=== PATIENT | female | born 2000 | race Caucasian/White ===

== ENCOUNTER 2022-01-15 23:43 | Emergency (ER) | payer BC, SELFPAY ==
[2022-01-15] MEDS ORDERED: Zofran 4 MG/2 ML VIAL IV ONE (23:54)
[2022-01-15] MEDS ORDERED: SUBLIMAZE 100 MCG/2 ML IV ONE (23:54)
[2022-01-16 00:02] VITALS: O2SAT 96
[2022-01-16] MEDS ORDERED: SUBLIMAZE 100 MCG/2 ML ONE ×2 (00:03→01:35)
[2022-01-16] MEDS ORDERED: Zofran 4 MG/2 ML VIAL ONE (00:03)
[2022-01-16] MEDS ORDERED: Adacel Vial IM ONE ×2 (00:28→00:36)
--- NOTE | 2022-01-16 00:36 | ERPHSYRPT ---
- History of Present Illness Source: patient Exam Limitations: no limitations Patient Subjective Stated Complaint: pt states "I dropped a gun safe on my right foot. I was helping someone move and it probably weighed 2500 lbs." Triage Nursing Assessment: pt presents to ED in wheelchair, pt alert and oriented x3, pt c/o R foot injury after dropping a gun safe on her foot about 40 minutes prior arrival, pt actively bleeding from R big toenail Physician History: 21 yo wf w R great toe crush injury when large safe landed on it. Pt was wearing tennis shoes when it happened. She states that safe's weight was >2000lbs. Pt denies other/previous injury and is not . Pain is a 10. Will be given Tdap in ER. Method of Injury: other (Crush injury) Occurred: just prior to arrival Quality: constant Severity of Pain-Max: severe Severity of Pain-Current: severe Lower Extremities Pain: 1st toe: right Modifying Factors: Improves With: movement Associated Symptoms: unable to bear weight Allergies/Adverse Reactions: amoxicillin trihydrate [From Augmentin] Allergy (Mild, Verified 06/18/13 23:49) Difficulty Breathing cefdinir [From Omnicef] Allergy (Mild, Verified 06/18/13 23:49) Difficulty Breathing Penicillins Allergy (Mild, Verified 06/18/13 23:48) Difficulty Breathing potassium clavulanate [From Augmentin] Allergy (Mild, Verified 06/18/13 23:49) Difficulty Breathing diphenhydramine HCl [From Benadryl] Allergy (Verified 06/18/13 23:50) guaifenesin [From Robitussin] Allergy (Verified 06/18/13 23:50) sulfamethoxazole [From Septra] Allergy (Verified 06/18/13 23:49) trimethoprim [From Septra] Allergy (Verified 06/18/13 23:49) Home Medications: Cetirizine HCl [Zyrtec] 1 tab PO DAILY 06/18/13 [History] Omeprazole 20 MG [Prilosec 20 mg] 06/18/13 [History] Hx Tetanus, Diphtheria Vaccination/Date Given: (unknown) Hx Influenza Vaccination/Date Given: No Hx Pneumococcal Vaccination/Date Given: No Immunizations Up to Date: Yes Travel Risk - International Travel Have you traveled outside of the country in past 3 weeks: No - Coronavirus Screening Are you exhibiting any of the following symptoms?: No Close contact with a COVID-19 positive Pt in past 14-21 Days: No - Vaccine Status Have you recieved a Covid-19 vaccination: Yes [employer]: [email or web address] - Vaccination Dates Date of 2cond Vaccination (if applicable): unknown - Review of Systems Constitutional: No Symptoms Eyes: No Symptoms Ears, Nose, & Throat: No Symptoms Respiratory: No Symptoms Cardiac: No Symptoms Abdominal/Gastrointestinal: No Symptoms Genitourinary Symptoms: No Symptoms Skin: No Symptoms Neurological: No Symptoms Psychological: No Symptoms Endocrine: No Symptoms Hematologic/Lymphatic: No Symptoms Immunological/Allergic: No Symptoms - Past Medical History Pertinent Past Medical History: Yes Neurological History: No Pertinent History ENT History: No Pertinent History Cardiac History: No Pertinent History Respiratory History: Asthma Endocrine Medical History: No Pertinent History Musculoskeletal History: No Pertinent History GI Medical History: No Pertinent History History: No Pertinent History Psycho-Social History: No Pertinent History Female Reproductive Disorders: No Pertinent History - Past Surgical History Past Surgical History: Yes Neuro Surgical History: No Pertinent History Cardiac: No Pertinent History Respiratory: No Pertinent History Gastrointestinal: No Pertinent History Genitourinary: No Pertinent History Musculoskeletal: No Pertinent History Female Surgical History: No Pertinent History Other Surgical History: EAR TUBES - Social History Smoking Status: Never smoker Exposure to second hand smoke: No Drug Use: none Patient Lives Alone: No Significant Family History: no pertinent family hx - Female History Hx Last Menstrual Period: unknown-on control Hx Now: No - Nursing Vital Signs Nursing Vital Signs: Initial Vital Signs Temperature 99.3 F 01/15/22 23:44 Pulse Rate 90 01/15/22 23:44 Respiratory Rate 20 01/15/22 23:44 Blood Pressure 148/97 01/15/22 23:44 O2 Sat by Pulse Oximetry 96 01/15/22 23:44 Pain Scale Pain Intensity 10 Hypertensive - Physical Exam General Appearance: no apparent distress Eyes, Ears, Nose, Throat Exam: normal ENT inspection, TMs normal, pharynx normal, moist mucous membranes Neck Exam: normal inspection, non-tender, supple, full range of motion, No Brudzinski, No Kernig's, No meningismus Cardiovascular/Respiratory Exam: normal breath sounds, regular rate/rhythm, heart sounds normal Gastrointestinal/Abdominal Exam: non-tender, soft, no organomegaly Back Exam: normal inspection, normal range of motion, No CVA tenderness Hips Exam: bilateral: non-tender, normal inspection, normal range of motion, no evidence of injury Legs Exam: bilateral leg: non-tender, normal inspection, normal range of motion, no evidence of injury Knees Exam: bilateral knee: non-tender, normal inspection, normal range of motion, no evidence of injury Ankle Exam: bilateral ankle: non-tender, normal inspection, normal range of motion, no evidence of injury Foot Exam: right foot: other (R great toe w large flap medially/nail avulsed at base but still connected to tissue/Good distal capillary return and sensation) Neuro/Tendon Exam: normal sensation, normal motor functions, normal tendon functions, responds to pain, no evidence tendon injury Mental Status Exam: alert, oriented x 3, cooperative Skin Exam: normal color, warm, dry SpO2 Interpretation: normal SpO2: 96 O2 Delivery: Room Air - Course Nursing assessment & vital signs reviewed: Yes - Radiology Exams Foot X-ray Interpretation: Interpreted by me (R great toe distal tuft fx) Ordered Tests: Active Orders 24 hr Category Date Time Status IV Insertion STAT Care 01/15/22 23:53 Active Medication Summary Discontinued Medications Generic Name Dose Route Start Last Admin Trade Name Prabhuq PRN Reason Stop Dose Admin Ciprofloxacin 500 mg 01/16/22 01:29 01/16/22 01:36 Ciprofloxacin 500 Mg Tablet PO 01/16/22 01:30 500 mg STAT ONE Administration Ciprofloxacin Confirm 01/16/22 01:35 Ciprofloxacin 500 Mg Tablet Administered 01/16/22 01:36 Dose 500 mg .ROUTE .STK-MED ONE Diphtheria/Tetanus/Acell Pertussis 0.5 ml 01/16/22 00:28 01/16/22 00:38 Tdap --Diph,Pertuss(Acell),Tet Vac/Pf 0.5 Ml Vial IM 01/16/22 00:29 0.5 ml .ONCE ONE Administration Diphtheria/Tetanus/Acell Pertussis Confirm 01/16/22 00:36 Tdap --Diph,Pertuss(Acell),Tet Vac/Pf 0.5 Ml Vial Administered 01/16/22 00:37 Dose 0.5 ml IM .STK-MED ONE Fentanyl Citrate 100 mcg 01/15/22 23:54 01/16/22 00:11 Fentanyl Citrate 100 Mcg/2 Ml* Vial IV 01/15/22 23:55 100 mcg STAT ONE Administration Fentanyl Citrate Confirm 01/16/22 00:03 Fentanyl Citrate 100 Mcg/2 Ml* Vial Administered 01/16/22 00:04 Dose 100 mcg .ROUTE .STK-MED ONE Fentanyl Citrate 100 mcg 01/16/22 01:28 01/16/22 01:36 Fentanyl Citrate 100 Mcg/2 Ml* Vial IV 01/16/22 01:29 100 mcg STAT ONE Administration Fentanyl Citrate Confirm 01/16/22 01:35 Fentanyl Citrate 100 Mcg/2 Ml* Vial Administered 01/16/22 01:36 Dose 100 mcg .ROUTE .STK-MED ONE Ondansetron HCl 4 mg 01/15/22 23:54 01/16/22 00:10 Ondansetron Hcl 4 Mg/2 Ml Vial IV 01/15/22 23:55 4 mg STAT ONE Administration Ondansetron HCl Confirm 01/16/22 00:03 Ondansetron Hcl 4 Mg/2 Ml Vial Administered 01/16/22 00:04 Dose 4 mg .ROUTE .STK-MED ONE - Progress Progress Note: 01/16/22 00:47 100mcg IV Fentanyl/4mg IV Zofran w improvement in pain Spoke w Dr. Holder, out of [facility], wants laceration irrigated/loosely closed/office follow up on Monday Digital block 1% Lido R great toe after informed oral consent/No comps 01/16/22 01:33 R great toe soaked in Hibiclens/sterile water After exploring wound, large dorsal flap includes nail and bed and is quite mangled. [facility] 100mcg IV Fentanyl/500mg po Cipro 01/16/22 02:03 Wet to dry dressing per nursing Counseled pt/family regarding: diagnosis, need for follow-up, rad results - Departure Departure Disposition: Transfer Clinical Impression: Open fracture of right great toe Condition: Stable Critical Care Time: No Referrals: DOCTOR,NO FAMILY [Primary Care Provider] - Follow up/PCP as directed Additional Instructions: [facility] Nothing to eat/drink in route
[2022-01-16] MEDS ORDERED: SUBLIMAZE 100 MCG/2 ML IV ONE (01:28)
[2022-01-16] MEDS ORDERED: Cipro 500 MG PO ONE (01:29)
[2022-01-16] MEDS ORDERED: Cipro 500 MG ONE (01:35)
[2022-01-16 02:07] VITALS: BP 140/88; PULSE 90
--- NOTE | 2022-01-16 07:50 | XRAY ---
Dictation: Great toe pain following injury. Comparison: None 3 nonweightbearing views right foot demonstrates minimally displaced great toe tuft fracture with soft tissue swelling. Incidental tiny heel spurs. No other bony, articular, or soft tissue abnormalities.
== END 2022-01-16 02:01 | disposition short-term general hospital (02) ==
LOC: ED 23:43
DX: S92.421B Displaced fracture of distal phalanx of right great toe, initial encounter for open fracture (principal); W20.8XXA Other cause of strike by thrown, projected or falling object, initial encounter; M79.674 Pain in right toe(s)
CPT/HCPCS: 36000; 73630; 90471; 90715; 96374; 96375; 96376; 99285; J2405; J3010; A9270-GY